=== PATIENT | male | born 1955 | race Caucasian/White ===

== ENCOUNTER 2017-01-24 06:50 | Day surgery (SDC) | payer MEDICAID ==
[2017-01-23 09:20] VITALS: BP 120/75
[2017-01-23 09:59] LABS: HEMOGLOBIN 14.1 g/dL (13.7-18.0)
[2017-01-23 10:08] LABS: ASPARTATE AMINO TRANSFERASE 31 U/L (15-37); BLOOD UREA NITROGEN 14 mg/dL (7-18)
[~2017-01-24] VITALS: Ht 193 cm; Wt 118.1 kg
[~2017-01-24 06:50] MED LIST: ALLO100T30 PO; ALLO300T PO; AMLO5TAB2 PO; ASPI-650 PO; ATOR20TA9 PO; HYDR-3240 PO; LEVO750T26 PO; LOSA100T6 PO; LOSA1TAB16 PO; LOSA50TA2 PO; METO-93 PO; METO-99 PO; MULT-658 PO; NAPR500T PO; OMEP-110 PO; OMEP20CA9 PO; OXYC10TA32 PO; POLY17PO5 PO; PRAV40TA2 PO; PRED10TA PO; SENN1TAB7 PO; TAMS-11 PO; TRAM-28 PO; TRAM50TA2 PO; VIT1CAPS9 PO
[2017-01-24] MEDS ORDERED: SODIUM CHLORIDE 0.9% 1,000 ML IV ONE (07:08)
[2017-01-24] MEDS ORDERED: TICAGRELOR 90 MG TABLET ONE (08:10)
[2017-01-24] MEDS ORDERED: MIDAZOLAM 1 MG/ML, 5ML ONE (08:10)
[2017-01-24] MEDS ORDERED: VERAPAMIL 2.5 MG/ML, 2ML ONE (08:10)
[2017-01-24] MEDS ORDERED: HEPARIN 1,000 UNITS/ML, 10ML ONE (08:10)
[2017-01-24] MEDS ORDERED: FENTANYL PF 100 MCG/2ML ONE (08:10)
[2017-01-24] MEDS ORDERED: BIVALIRUDIN 250 MG ONE (08:10)
[2017-01-24] MEDS ORDERED: DIPHENHYDRAMINE 50 MG/ML, 1ML ONE (08:10)
[2017-01-24] MEDS ORDERED: LIDOCAINE 2%, 20ML ONE (08:11)
[2017-01-24] MEDS ORDERED: SODIUM CHLORIDE 0.9% 1,000 ML IV SCH (09:58)
== END 2017-01-24 12:41 | disposition home or self-care (01) ==
LOC: CACL 06:50
PROVIDERS: ATTEND Internal Medicine Cardiovascular Disease
DX: I25.10 Atherosclerotic heart disease of native coronary artery without angina pectoris (principal); I10 Essential (primary) hypertension; Z95.5 Presence of coronary angioplasty implant and graft; Z87.891 Personal history of nicotine dependence; E78.2 Mixed hyperlipidemia; I48.92 Unspecified atrial flutter; Z79.01 Long term (current) use of anticoagulants
CPT/HCPCS: 36415; 71020; 80053; 85025; 85610; 85730; 93005; 93458; C1894; J1644; J2250; J3010; J3490; J7030; Q9967; J0583; J1200